=== PATIENT | female | born 1950 | race Caucasian/White ===

== ENCOUNTER 2021-07-30 14:47 | Inpatient (IN) | payer OTHER, MEDICAID ==
[~2021-07-30] VITALS: Ht 160 cm; Wt 153.8 kg
--- NOTE | 2021-07-30 14:47 | NUR ---
Placed in room 03. DR. DUMAS AT BEDSIDE FOR EVALUATION, CODE STROKE INITIATED AT THIS TIME.
--- NOTE | 2021-07-30 14:47 | NUR ---
PATIENT BROUGHT IN ALS WITH SQUAD 64 FOR SLURRED SPEECH FROM HOME. PATIENT IMMEDIATELY ACCOMPANIED BY MYSELF AND ANNE BOLTON FOR CT SCAN.
[2021-07-30 14:51] VITALS: BP_SYST 158
--- NOTE | 2021-07-30 14:51 | NUR ---
NIHSS SCORE [address] DUMAS
--- NOTE | 2021-07-30 14:51 | NUR ---
PATIENT IN CT SCAN FOR CT HEAD. PATIENT TOLERATING WELL.
--- NOTE | 2021-07-30 14:56 | NUR ---
CT SCAN COMPLETED
--- NOTE | 2021-07-30 14:56 | NUR ---
Lizzy mendez in EDM - 07/30/21 at 1554 by SDEDCJM CHEST XRAY COMPLETED EN ROUTE TO ED.
--- NOTE | 2021-07-30 15:07 | NUR ---
CHEST XRAY COMPLETED. PATIENT TOLERATED WELL
--- NOTE | 2021-07-30 15:08 | NUR ---
PATIENT RETURNED FROM CT SCAN. PLACED ON CARDIAC MONITORING, BLOOD PRESSURE, PULSE OXIMETRY. PATIENT BROUGHT IN BY ALS SQUAD 64 FROM [facility]. PER SON,WHO IS HER INSURANCE RISK SURVEYOR, PATIENT HAS GENERALIZED WEAKNESS X 3 DAYS AND NOTICED SHE HAS SLURRED SPEECH. PATIENT IS PLEASANTLY CONFUSED. BUE PEOPLESOFT DEVELOPER AND STRENGTH EQUAL. UNABLE TO MOVE RIGHT LOWER EXTREMITY AND MINIMAL MOVEMENT ON LEFT LOWER EXTREMITY. FAMILY REPORTS THAT HAS BEEN GOING ON FOR MONTHS. PATIENT HAS HISTORY OF DM, HTN AND AFIB. NIHSS SCORE OF 7.
--- NOTE | 2021-07-30 15:09 | NUR ---
PHLEB AT BEDSIDE FOR BLOOD DRAW
--- NOTE | 2021-07-30 15:16 | NUR ---
SWALLOW SCREEN FAILED. PATIENT HAS FACIAL DROOP, SLURRED SPEECH AND DROOLING.
[2021-07-30 15:27] LABS: BASOPHILS % (AUTO) 0.6 % (0.0-2.0); EOSINOPHILS # (AUTO) 0.1 K/uL (0.0-0.4); EOSINOPHILS % (AUTO) 1.3 % (0.0-4.0); HEMATOCRIT 37.9 % (36-48); HEMOGLOBIN 11.8 g/dL (12.0-16.0); LYMPHOCYTES # (AUTO) 0.7 K/uL (1.0-5.5); LYMPHOCYTES % (AUTO) 14.8 % (20.5-51.5); MEAN CORPUSCULAR HEMOGLOBIN 25 pg (27-31); MEAN CORPUSCULAR HGB CONC 31 % (32-36); MEAN CORPUSCULAR VOLUME 81 fL (79.0-98.0); MONOCYTES # (AUTO) 0.3 K/uL (0.0-1.0); MONOCYTES % (AUTO) 5.5 % (1.7-9.3); NEUTROPHILS # (AUTO) 3.8 K/uL (1.8-7.7); NEUTROPHILS % (AUTO) 77.8 % (40.0-70.0); PLATELET COUNT (AUTO) 310 K/uL (130-430); RED BLOOD CELL COUNT(AUTO) 4.69 MIL/uL (4.2-6.2); RED CELL DISTRIBUTION WIDTH 16.9 % (9.0-15.0); WHITE BLOOD COUNT (AUTO) 4.9 K/uL (4.8-10.8)
--- NOTE | 2021-07-30 15:28 | NUR ---
TELE MED NEUROLOGIST DR. YUN AT BEDSIDE EVALUATING PATIENT.
[2021-07-30 15:31] LABS: ANION GAP 4 (5-15); CALCIUM 8.4 mg/dL (8.4-11.0); CHLORIDE 93 mmol/L (98-107); CREATININE 2.26 mg/dL (0.55-1.30); GLUCOSE 176 mg/dL (70-99); SODIUM SERUM 123 mmol/L (136-145); UREA NITROGEN, BLOOD 48 mg/dL (8-21)
[2021-07-30 15:39] LABS: ALANINE AMINOTRANSFERASE 23 U/L (12-78); ALBUMIN 3.2 g/dL (3.4-4.8); ASPARTATE AMINOTRANSFERASE 35 U/L (10-37); TOTAL BILIRUBIN 0.3 mg/dL (0.0-1.0)
--- NOTE | 2021-07-30 15:47 | NUR ---
Critical lab value reporting called from lab and results were potassium 7. Dr. Tan made aware.
[2021-07-30] MEDS ORDERED: NACL 0.9% 1,000 ML IV ONE (16:00)
[2021-07-30] MEDS ORDERED: SODIUM POLYSTYRENE SULFONATE 15 GM/60 ML UDBTL PO ONE (16:00)
[2021-07-30] MEDS ORDERED: SODIUM BICARBONATE 8.4% JECT 50 MEQ/50 ML SYRINGE IVP ONE (16:00)
[2021-07-30] MEDS ORDERED: INSULIN REGULAR, HUMAN 10 UNITS/0.1 ML INJ IVP ONE (16:00)
[2021-07-30] MEDS ORDERED: CALCIUM CHLORIDE 1 GM/10 ML DISP.SYRIN (14 mEq Ca++/SYR) IVP ONE (16:00)
[2021-07-30] MEDS ORDERED: DEXTROSE 50% JECT 50 ML DISP.SYRIN IVP ONE (16:00)
[2021-07-30] MEDS ORDERED: DILTIAZEM HCL 60 MG TABLET PO ONE (16:00)
--- NOTE | 2021-07-30 16:05 | NUR ---
DR. DUMAS SPEAKING TO DR. LOPEZ FOR ADMISSION
--- NOTE | 2021-07-30 16:32 | NUR ---
CARDIZEM NOT GIVEN AT THIS TIME. MD DUMAS NOTIFIED. PATIENT IS NPO. OK NOT TO GIVE AT THIS TIME HR 60BPM
--- NOTE | 2021-07-30 16:39 | NUR ---
Admit bed requested Patient will be admitted to care of . Admitted to ICU unit. Diagnosis CVA, RENAL FAILURE, HYPERKALEMIA Inpatient (Yes or No) YES Observation (Yes or No) Orientation concerns or request close to nursing station (Yes or No) NO Covid Status PENDING From Home (Yes or if No enter name of facility) [facility] Requires Dialysis (Yes or No) NO Med Rec Completed (Yes of No) YES Addendum: 07/30/21 at 1706 by SDEDCJM COVID NEGATIVE
[2021-07-30] MEDS ORDERED: GLUCOSE (DEXTROSE) ORAL GEL -Adults PO PRN (16:45)
[2021-07-30] MEDS ORDERED: D5W 1,000 ML IV PRN (16:45)
[2021-07-30] MEDS ORDERED: DEXTROSE 50%-WATER 50 ML DISP.SYRIN IVP PRN (16:45)
[2021-07-30] MEDS ORDERED: DIPH50CA38 PO (17:12)
[2021-07-30] MEDS ORDERED: COR12.5 PO (17:12)
[2021-07-30] MEDS ORDERED: LOSA100T3 PO (17:12)
[2021-07-30] MEDS ORDERED: HYDR-3919 (17:12)
[2021-07-30] MEDS ORDERED: CLON2TAB11 PO (17:12)
[2021-07-30] MEDS ORDERED: OMEP10CA2 PO (17:12)
[2021-07-30] MEDS ORDERED: SERT100T PO (17:12)
[2021-07-30] MEDS ORDERED: FENO145T PO (17:12)
[2021-07-30] MEDS ORDERED: GABA-331 PO (17:12)
[2021-07-30] MEDS ORDERED: [UNRECOGNIZED DRUG - CODE] PO (17:12)
--- NOTE | 2021-07-30 17:13 | NUR ---
Medication reconciliation completed with information provided by PATIENT'S SON. Any prior medication reconciliation on file was reviewed and corrected.
[2021-07-30] MEDS ORDERED: SODIUM POLYSTYRENE SULFONATE 15 GM/60 ML UDBTL RC ONE (17:15)
--- NOTE | 2021-07-30 17:28 | NUR ---
PATIENT IS FULL CODE. CODE STATUS FROM PLACED IN CHART
--- NOTE | 2021-07-30 18:38 | NUR ---
Accucheck 102
--- NOTE | 2021-07-30 19:19 | NUR ---
patient moved to bed 6
--- NOTE | 2021-07-30 19:29 | NUR ---
SON, ERIC [phone] DAUGHTER, PRADEEP [phone]
[2021-07-30 19:39] LABS: ANION GAP 8 (5-15); CALCIUM 8.7 mg/dL (8.4-11.0); CHLORIDE 99 mmol/L (98-107); GLUCOSE 98 mg/dL (70-99); POTASSIUM 5.4 mmol/L (3.5-5.1); SODIUM SERUM 128 mmol/L (136-145); UREA NITROGEN, BLOOD 47 mg/dL (8-21)
--- NOTE | 2021-07-31 | NUR ---
ACCUCHECK: 91 No signs of hypoglycemia noted. Resting comfortably in bed.
[2021-07-31] MEDS ORDERED: ONDANSETRON HCL 4 MG/2 ML VIAL IVP PRN (04:15)
[2021-07-31] MEDS: MORPHINE 2 MG/ML INJ. SYRINGE IVP PRN ×3 (04:25→23:36)
--- NOTE | 2021-07-31 05:10 | NUR ---
Restoril 15 mg 1 tab PO administered. Pt unable to sleep all night and requesting sleeping aid.
[2021-07-31] MEDS ORDERED: TEMAZEPAM 15 MG CAPSULE ONE (05:27)
[2021-07-31] MEDS ORDERED: LORazepam 2 MG/ML VIAL ONE (05:40)
--- NOTE | 2021-07-31 06:50 | NUR ---
ACCUCHECK: 87 No signs of hypoglycemia. Resting comfortably in bed.
[2021-07-31] MEDS ORDERED: KCL 20 mEq in 100 mL (PREMIX) 100 ML IV ONE (07:00)
--- NOTE | 2021-07-31 07:40 | NUR ---
Report taken. VSS. LOC X 3. No neuro deficits. Continues in Afib with controlled rate. States that she is hungry. MD to be asked about food. To be admitted Awaiting bed on floor.
[2021-07-31 07:45] LABS: EOSINOPHILS # (AUTO) 0.2 K/uL (0.0-0.4); EOSINOPHILS % (AUTO) 2.9 % (0.0-4.0); HEMATOCRIT 36.9 % (36-48); HEMOGLOBIN 11.5 g/dL (12.0-16.0); LYMPHOCYTES # (AUTO) 0.6 K/uL (1.0-5.5); LYMPHOCYTES % (AUTO) 10.4 % (20.5-51.5); MEAN CORPUSCULAR HEMOGLOBIN 25 pg (27-31); MEAN CORPUSCULAR HGB CONC 31 % (32-36); MEAN CORPUSCULAR VOLUME 81 fL (79.0-98.0); MONOCYTES # (AUTO) 0.4 K/uL (0.0-1.0); MONOCYTES % (AUTO) 6.8 % (1.7-9.3); PLATELET COUNT (AUTO) 314 K/uL (130-430); RED BLOOD CELL COUNT(AUTO) 4.54 MIL/uL (4.2-6.2); RED CELL DISTRIBUTION WIDTH 16.6 % (9.0-15.0); WHITE BLOOD COUNT (AUTO) 5.9 K/uL (4.8-10.8)
--- NOTE | 2021-07-31 08:00 | NUR ---
Orders received per Dr Woodall to downgrade level of care to telemetry
--- NOTE | 2021-07-31 08:01 | NUR ---
Admit bed requested Patient will be admitted to care of Dr. Woodall. Admitted to tele unit. Diagnosis CVA Inpatient (Yes or No) Y Observation (Yes or No) N Orientation concerns or request close to nursing station (Yes or No) N Covid Status Neg On vent or bipap N Isolation requirements N Needs a sitter N From Home (Yes or if No enter name of facility) Home Requires Dialysis (Yes or No) N Med Rec Completed (Yes of No) Y
[2021-07-31 08:05] LABS: ALANINE AMINOTRANSFERASE 18 U/L (12-78); ANION GAP 9 (5-15); ASPARTATE AMINOTRANSFERASE 30 U/L (10-37); CALCIUM 8.7 mg/dL (8.4-11.0); CHLORIDE 98 mmol/L (98-107); CREATININE 2.21 mg/dL (0.55-1.30); GLUCOSE 88 mg/dL (70-99); SODIUM SERUM 130 mmol/L (136-145); TOTAL BILIRUBIN 0.5 mg/dL (0.0-1.0); UREA NITROGEN, BLOOD 44 mg/dL (8-21)
[2021-07-31] MEDS ORDERED: DILTIAZEM HCL 60 MG TABLET PO ONE (08:15)
[2021-07-31] MEDS ORDERED: MORPHINE 2 MG/ML INJ. SYRINGE ONE (08:31)
[2021-07-31 08:45] LABS: POTASSIUM 5.8 mmol/L (3.5-5.1)
--- NOTE | 2021-07-31 08:45 | NUR ---
Admitted. Orders taken for cardizem PO and Morphine which has been given. Am meal ordered Awaiting arrival. Report given to Nestor Ambulated to Placed in bed Nurse aware
--- NOTE | 2021-07-31 08:50 | NUR ---
ADMISSION NOTE Received patient from ER via yun, received report from ROBBIN GOLD. Patient admitted with diagnosis of CVA, HYPERKALEMIA AND RENAL FAILURE. Patient oriented to hospital routine, call light, toileting and safety-patient verbalized understanding All needs met at this time, will continue to monitor. .
[2021-07-31 08:57] LABS: BASOPHILS % (AUTO) 0.3 % (0.0-2.0); NEUTROPHILS % (AUTO) 79.6 % (40.0-70.0)
[2021-07-31 08:59] LABS: NEUTROPHILS # (AUTO) 4.7 K/uL (1.8-7.7)
[2021-07-31 09:00] VITALS: BP_SYST 125
[2021-07-31] MEDS ORDERED: NALOXONE HCL 0.4 MG/ML AMP (NARCAN) IVP PRN (09:00)
[2021-07-31] MEDS ORDERED: MORPHINE 2 MG/ML INJ. SYRINGE IVP ONE (09:00)
--- NOTE | 2021-07-31 09:13 | NUR ---
CONSULTATION PAGED/CALLED Reason for Consultation: [] RENAL FAILURE Person Who was Notified: [] CINDY Consulting Physician: [] DR JOSEPH Parking Enforcement Manager Specialty: [] FREIGHT REPRESENTATIVE Ordering Physician: [] DR LOPEZ
--- NOTE | 2021-07-31 09:15 | NUR ---
CONSULTATION PAGED/CALLED Reason for Consultation: [] CVA Person Who was Notified: [] LEFT A VOICE MESSAGE Consulting Physician: [] MANNY GRUBBS Supervisor Locomotive Specialty: [] NEURO Ordering Physician: [] DR LOPEZ
--- NOTE | 2021-07-31 10:29 | NUR ---
SPOKE TO MD Spoke to Dr Woodall, informed him that the patient's potassium is 5.8. New orders received.
[2021-07-31] MEDS ORDERED: SODIUM POLYSTYRENE SULFONATE 15 GM/60 ML UDBTL PO ONE (10:30)
[2021-07-31 11:28] VITALS: BP_SYST 151
--- NOTE | 2021-07-31 15:07 | NUR ---
Dietitian Recommendations * Consider ST padmaja dangelo prior to diet advancement LP, RD Please refer to Nutrition Assessment for details. Addendum: 07/31/21 at [address] Amended: Links added.
[2021-07-31] MEDS ORDERED: FENOFIBRATE NANOCRYSTALLIZED PO SCH (15:15)
[2021-07-31] MEDS ORDERED: NON-FORMULARY MEDICATION (Gabapentin 1 TAB) PO SCH (15:15)
[2021-07-31] MEDS ORDERED: NON-FORMULARY MEDICATION (Omeprazole (Prilosec) 20 MG) PO SCH (15:15)
[2021-07-31] MEDS ORDERED: ERGOCALCIFEROL PO SCH (15:15)
[2021-07-31] MEDS ORDERED: PANTOPRAZOLE SODIUM 40 MG TAB PO ONE (15:30)
[2021-07-31] MEDS ORDERED: CARVEDILOL 12.5 MG TABLET (COREG) PO ONE (15:30)
[2021-07-31] MEDS ORDERED: SERTRALINE HCL 50 MG TABLET PO ONE (15:30)
[2021-07-31] MEDS ORDERED: LOSARTAN POTASSIUM 50 MG TABLET (COZAAR) PO ONE (15:30)
[2021-07-31] MEDS ORDERED: GABAPENTIN 300 MG CAPSULE PO ONE (15:45)
[2021-07-31] MEDS ORDERED: FENOFIBRATE NANOCRYSTALLIZED 48 MG TABLET (TRICOR) PO ONE (15:45)
[2021-07-31 16:04] VITALS: BP_SYST 125
[2021-07-31] MEDS ORDERED: ASPIRIN 81 MG TAB.CHEW PO ONE (17:30)
[2021-07-31] MEDS ORDERED: CLOPIDOGREL BISULFATE 75 MG TABLET PO ONE (17:30)
[2021-07-31] MEDS: INSULIN REGULAR, HUMAN 100 UNITS/ML, 10 ML VIAL (humuLIN R) SUBCUT PRN (17:31)
[2021-07-31] MEDS ORDERED: NACL 0.9% 1,000 ML IV SCH (19:45)
--- NOTE | 2021-07-31 19:47 | NUR ---
CLOSING NOTE Patient in bed resting with daughter at bedside. Patient is oriented to self only at this time. Patient has been tolerating soft renal diet well. Patient complaining of headache, aware of when she cant receive her next pain medication. Family is updated on the plan of care and ordered tests. All needs met at this time and safety checks made. Endorsed to slot shift supervisor nurse.
[2021-07-31 20:00] VITALS: BP_SYST 124
[2021-07-31] MEDS ORDERED: SODIUM ZIRCONIUM CYCLOSILICATE 10 GM POWD.PACK PO ONE (20:00)
[2021-07-31] MEDS: TEMAZEPAM 15 MG CAPSULE PO SCH (20:09)
[2021-07-31] MEDS: ATORVASTATIN 20 MG TABLET PO SCH (20:10)
[2021-07-31] MEDS: CARVEDILOL 12.5 MG TABLET (COREG) PO SCH (20:11)
[2021-07-31] MEDS: D5NS 1,000 ML IV SCH (20:11)
[2021-07-31] MEDS: clonazePAM 0.5 MG TABLET PO PRN (21:48)
[2021-08-01 01:10] VITALS: BP_SYST 155
[2021-08-01 04:00] VITALS: BP_SYST 142
[2021-08-01] MEDS: MORPHINE 2 MG/ML INJ. SYRINGE IVP PRN ×2 (06:12→21:53)
[2021-08-01] MEDS: clonazePAM 0.5 MG TABLET PO PRN ×2 (06:25→23:56)
[2021-08-01 07:05] LABS: HEMATOCRIT 32.9 % (36-48); HEMOGLOBIN 10.3 g/dL (12.0-16.0); MEAN CORPUSCULAR HEMOGLOBIN 25 pg (27-31); MEAN CORPUSCULAR HGB CONC 31 % (32-36); MEAN CORPUSCULAR VOLUME 80 fL (79.0-98.0); PLATELET COUNT (AUTO) 239 K/uL (130-430); RED CELL DISTRIBUTION WIDTH 16.8 % (9.0-15.0)
[2021-08-01 07:34] LABS: WHITE BLOOD COUNT (AUTO) 3.4 K/uL (4.8-10.8)
[2021-08-01 07:47] LABS: ANION GAP 9 (5-15); CALCIUM 7.7 mg/dL (8.4-11.0); CHLORIDE 98 mmol/L (98-107); GLUCOSE 179 mg/dL (70-99); PHOSPHORUS 3.7 mg/dL (2.7-4.5); POTASSIUM 4.3 mmol/L (3.5-5.1); SODIUM SERUM 130 mmol/L (136-145); THYROID STIMULATING HORMONE 2.32 uIu/mL (0.36-3.74); UREA NITROGEN, BLOOD 34 mg/dL (8-21)
[2021-08-01 08:11] VITALS: BP_SYST 147
[2021-08-01 08:15] LABS: CHOLESTEROL 95 mg/dL (<200); HDL CHOLESTEROL 36 mg/dL (>55); LDL CHOLESTEROL 43 mg/dL (<100); TRIGLYCERIDES 63 mg/dL (30-150)
[2021-08-01 08:30] LABS: BAND % (MANUAL) 0 % (0-6); BASOPHILS % (MANUAL) 0 % (0-2); EOSINOPHILS % (MANUAL) 2 % (0-7); LYMPHOCYTES % (MANUAL) 14 % (20-46); MONOCYTES % (MANUAL) 7 % (0-11)
[2021-08-01] MEDS ORDERED: SERTRALINE HCL 50 MG TABLET PO SCH (09:00)
[2021-08-01] MEDS: D5NS 1,000 ML IV SCH ×2 (09:05→23:38)
[2021-08-01] MEDS: GABAPENTIN 300 MG CAPSULE PO SCH (10:18)
[2021-08-01] MEDS: ASPIRIN 81 MG TAB.CHEW PO SCH (10:19)
[2021-08-01] MEDS: FENOFIBRATE NANOCRYSTALLIZED 48 MG TABLET (TRICOR) PO SCH (10:20)
[2021-08-01] MEDS: PANTOPRAZOLE SODIUM 40 MG TAB PO SCH (10:21)
[2021-08-01] MEDS: ATORVASTATIN 20 MG TABLET PO SCH (10:22)
[2021-08-01] MEDS: LOSARTAN POTASSIUM 50 MG TABLET (COZAAR) PO SCH (10:23)
[2021-08-01] MEDS: CLOPIDOGREL BISULFATE 75 MG TABLET PO SCH (10:24)
[2021-08-01] MEDS: CARVEDILOL 12.5 MG TABLET (COREG) PO SCH ×2 (10:24→21:50)
[2021-08-01 12:02] VITALS: BP_SYST 108
[2021-08-01] MEDS: INSULIN REGULAR, HUMAN 100 UNITS/ML, 10 ML VIAL (humuLIN R) SUBCUT PRN ×3 (13:41→23:47)
[2021-08-01 15:34] VITALS: BP_SYST 110
--- NOTE | 2021-08-01 19:00 | NUR ---
Pt is resting quietly at this time. Pt's daughter visited with her most of the shift. Pt has been accepting verbal redirection well. Respirations even et unlabored. Pt requires assistance and monitoring with meals. Incontinent care rendered as needed throughout the shift.
[2021-08-01 20:00] VITALS: BP_SYST 96
[2021-08-01] MEDS: TEMAZEPAM 15 MG CAPSULE PO SCH (21:49)
[2021-08-02 00:55] VITALS: BP_SYST 107
[2021-08-02] MEDS: INSULIN REGULAR, HUMAN 100 UNITS/ML, 10 ML VIAL (humuLIN R) SUBCUT PRN ×3 (06:00→18:46)
--- NOTE | 2021-08-02 06:46 | NUR ---
CONSULTATION PAGED/CALLED Reason for Consultation: [] AFIB Person Who was Notified: [] BERT Consulting Physician: [] DR DELGADO Marketing Support Specialist Specialty: [] CARDIO Ordering Physician: [] DR LOPEZ
[2021-08-02 07:01] LABS: BASOPHILS % (AUTO) 0.8 % (0.0-2.0); EOSINOPHILS # (AUTO) 0.1 K/uL (0.0-0.4); EOSINOPHILS % (AUTO) 3.1 % (0.0-4.0); HEMATOCRIT 32.3 % (36-48); HEMOGLOBIN 10.2 g/dL (12.0-16.0); LYMPHOCYTES # (AUTO) 0.6 K/uL (1.0-5.5); LYMPHOCYTES % (AUTO) 16.9 % (20.5-51.5); MEAN CORPUSCULAR HEMOGLOBIN 25 pg (27-31); MEAN CORPUSCULAR HGB CONC 32 % (32-36); MEAN CORPUSCULAR VOLUME 80 fL (79.0-98.0); MONOCYTES # (AUTO) 0.3 K/uL (0.0-1.0); MONOCYTES % (AUTO) 10.6 % (1.7-9.3); NEUTROPHILS # (AUTO) 2.2 K/uL (1.8-7.7); NEUTROPHILS % (AUTO) 68.6 % (40.0-70.0); PLATELET COUNT (AUTO) 223 K/uL (130-430); RED BLOOD CELL COUNT(AUTO) 4.06 MIL/uL (4.2-6.2); WHITE BLOOD COUNT (AUTO) 3.3 K/uL (4.8-10.8)
[2021-08-02 07:07] LABS: CORTISOL (SERUM) 21.4 ug/dL (.)
[2021-08-02 07:28] LABS: ANION GAP 8 (5-15); CALCIUM 7.6 mg/dL (8.4-11.0); CHLORIDE 99 mmol/L (98-107); CREATININE 1.85 mg/dL (0.55-1.30); GLUCOSE 152 mg/dL (70-99); POTASSIUM 4.3 mmol/L (3.5-5.1); SODIUM SERUM 130 mmol/L (136-145); UREA NITROGEN, BLOOD 32 mg/dL (8-21)
[2021-08-02 08:00] VITALS: BP_SYST 121
[2021-08-02] MEDS: FENOFIBRATE NANOCRYSTALLIZED 48 MG TABLET (TRICOR) PO SCH (08:59)
[2021-08-02] MEDS: GABAPENTIN 300 MG CAPSULE PO SCH (08:59)
[2021-08-02] MEDS: LOSARTAN POTASSIUM 50 MG TABLET (COZAAR) PO SCH (09:00)
[2021-08-02] MEDS: PANTOPRAZOLE SODIUM 40 MG TAB PO SCH (09:00)
[2021-08-02] MEDS: ASPIRIN 81 MG TAB.CHEW PO SCH (09:00)
[2021-08-02] MEDS: CLOPIDOGREL BISULFATE 75 MG TABLET PO SCH (09:00)
[2021-08-02] MEDS: CARVEDILOL 12.5 MG TABLET (COREG) PO SCH ×2 (09:01→21:08)
[2021-08-02 09:52] LABS: HEMOGLOBIN A1C 8.9 % (4.8-5.6)
[2021-08-02 11:32] VITALS: BP_SYST 142
[2021-08-02] MEDS: D5NS 1,000 ML IV SCH (15:00)
--- NOTE | 2021-08-02 15:23 | NUR ---
Nutritional F/U Admitting Diagnosis CVA, hyperkalemia, renal failure Reviewed Pertinent Medical/Surgical Hx Medical Record Medical History Comment: PMH: DM, HTN, HLD, and atr fibr per physician notes Pt also found w/ generalized weakness, L-sided facial droop, and slurred speech upon admission from home per physician notes SARS-CoV-2 Ag (Rapid) Negative 07/[address] bedside visit deferred d/t high workload. Per physician notes, pt also found to have JACY. Per EMR review, Paul scale 14 L. ankle wound; B. generalized 2+ non-pitting edema; Las BM x1 08/01; average PO intake 34% x 6 meal records. Pt is not currently meeting nutritional needs. Current Diet Order/Nutrition Support Soft/Coleman x 1 day Patient/Significant Other Unable To Verbalize Education Provided Not Indicated Pertinent Medications Plavix, Protonix, Cozaar, Coreg, Vit D, SSI Pertinent Labs Na 130 L, BUN 32 H, CRE 1.85 H, BG 152 H, POC BG 195 H Height (Feet) 5 feet Height (Inches) 3.00 inches Weight (Pounds) 339 pounds stable since 07/31 Weight (Calculated Kilograms) 153.080847 kilograms Patient Weight 153.768 kg Body Mass Index 60.04 kg/m2 %IBW 295 [place]/Adjusted Body Weight 115#/52.3 kg. 171#/77.7 kg Recent Weight Change Unable to verify Weight Status Morbidly Obese Food Allergies Unable to verify Usual Diet At Home Regular per nursing nutritional screening Skin Integrity Comment: Unhealed wound noted per nursing nutritional screening Estimated Energy Expenditure (kcals/day) 2960-9856 (30-35 kcal/kg Adj IBW d/t morbid obesity, CVA, wound) Estimated Protein Required (g/day) 78-101 (1-1.3 gm/kg Adj IBW d/t renal failure, morbid obesity, CVA, wound) Estimated Fluid Required (l/day) Per physician d/t renal failure Problem/Etiology/Signs/Symptoms Suspected chewing/swallowing difficulties R/T pathophysiological factors AEB generalized weakness/L-sided facial droop, and slurred speech upon admission a/w CVA. (*ongoing) Expected Outcomes/Goals - Monitor ST swallow eval recs, diet advancement, appetite, and PO intakes w/ goal of pt meeting >50% of estimated nutritional needs, labs trending WNL, normal GI function, and skin integrity/wt maintenance Dietitian Recommendations * Consider ST swallow eval for pts safety Follow Up High Risk: F/U in 2-3days Please refer to Nutrition F/U for details.
--- NOTE | 2021-08-02 15:23 | NUR ---
Dietitian Recommendations * Consider ST swallow eval for pts safety Please refer to Nutrition F/U for details.
[2021-08-02 16:00] VITALS: BP_SYST 149
--- NOTE | 2021-08-02 18:00 | NUR ---
Patient's sons visited at bedside most of the shift. Neurologist came to speak to family and reassess pt at this time. Pt is calm with family prsent at bedside. Pt's neuro status changes intermittently. Speech from clear to unclear and movement on left side of body is weaker at intervals, as well as the left facial drooping. Neurologist is aware of this. Neurologist stated that he plans to proceed with MRI if possible. Family at bedside and is updated on the plan of care. Pt remains on room air. No s/s respiratory distress noted.
[2021-08-02 19:36] VITALS: BP_SYST 133
[2021-08-02] MEDS: TEMAZEPAM 15 MG CAPSULE PO SCH (21:09)
[2021-08-03] MEDS: D5NS 1,000 ML IV SCH ×2 (00:09→14:25)
[2021-08-03 00:20] VITALS: BP_SYST 128
[2021-08-03] MEDS: INSULIN REGULAR, HUMAN 100 UNITS/ML, 10 ML VIAL (humuLIN R) SUBCUT PRN ×5 (05:53→23:10)
--- NOTE | 2021-08-03 07:56 | NUR ---
OPENING NOTE Patient resting in bed, awake and alert, oriented only to self. Patient is confused and agitated at this time. Patient able to feed herself breakfast with assist. No sign of distress and patient denies pain. All needs met at this time and safety checks made. Will continue to monitor.
[2021-08-03 08:00] VITALS: BP_SYST 140
[2021-08-03 08:38] LABS: ANION GAP 9 (5-15); CALCIUM 7.7 mg/dL (8.4-11.0); CHLORIDE 99 mmol/L (98-107); CREATININE 1.81 mg/dL (0.55-1.30); GLUCOSE 149 mg/dL (70-99); POTASSIUM 4.2 mmol/L (3.5-5.1); SODIUM SERUM 130 mmol/L (136-145); UREA NITROGEN, BLOOD 27 mg/dL (8-21)
[2021-08-03] MEDS: CARVEDILOL 12.5 MG TABLET (COREG) PO SCH ×2 (09:32→21:00)
[2021-08-03] MEDS: PANTOPRAZOLE SODIUM 40 MG TAB PO SCH (09:32)
[2021-08-03] MEDS: GABAPENTIN 300 MG CAPSULE PO SCH (09:32)
[2021-08-03] MEDS: clonazePAM 0.5 MG TABLET PO PRN (09:32)
[2021-08-03] MEDS: FENOFIBRATE NANOCRYSTALLIZED 48 MG TABLET (TRICOR) PO SCH (09:33)
[2021-08-03] MEDS: LOSARTAN POTASSIUM 50 MG TABLET (COZAAR) PO SCH (09:33)
[2021-08-03] MEDS: CLOPIDOGREL BISULFATE 75 MG TABLET PO SCH (09:33)
[2021-08-03] MEDS: ASPIRIN 81 MG TAB.CHEW PO SCH (09:33)
--- NOTE | 2021-08-03 09:46 | NUR ---
PRN MEDICATIONS Patient complaining of pain (9/10) in her back and head as well as anxiety. PRN medications given. Will continue to monitor.
[2021-08-03] MEDS: MORPHINE 2 MG/ML INJ. SYRINGE IVP PRN (09:49)
[2021-08-03 12:00] VITALS: BP_SYST 150
--- NOTE | 2021-08-03 15:00 | NUR ---
ROUNDS Patient in bed resting with eyes closed. Patient supported with pillows and positioned for fluid return. No sign of distress or pain at this time. IV is patent and running prescribed fluids. All needs met at this time and safety checks made. Will continue to monitor.
[2021-08-03 16:00] VITALS: BP_SYST 140
--- NOTE | 2021-08-03 19:17 | NUR ---
CLOSING NOTE Patient in bed resting with son at bedside. No sign of distress, patient denies pain at this time. Patient has been sleeping for most of the shift. Positioned for fluid return and supported by pillows. IV is clean, dry, intact and patent. Patient's family updated on the plan of care. All needs met at this time and safety checks made. Endorsed to shift leader nurse.
[2021-08-03 20:55] VITALS: BP_SYST 124
[2021-08-03] MEDS: TEMAZEPAM 15 MG CAPSULE PO SCH (20:59)
[2021-08-04 00:07] VITALS: BP_SYST 133
--- NOTE | 2021-08-04 02:34 | NUR ---
transfer of care Received SBAR report from ASIF Wilson. He reported IV is not patent, catheter to LFA is saline locked. Patient is resting in bed, eyes open, no distress, on room air, nonlabored breathing. Her words are garbled. Patient is A-fib on tele monitor HR 104. Bed is locked in lowest position, side rails up, and bed alarm on.
[2021-08-04] MEDS: D5NS 1,000 ML IV SCH (03:45)
--- NOTE | 2021-08-04 06:30 | NUR ---
Accucheck, IV attempt Patient was provided with bed bath and new linens. Accucheck result: 115 mg/dL. IV start attempted once by myself and twice by ICU nurse and unsuccessful.
[2021-08-04 06:49] LABS: BASOPHILS % (AUTO) 0.9 % (0.0-2.0); EOSINOPHILS # (AUTO) 0.2 K/uL (0.0-0.4); EOSINOPHILS % (AUTO) 6.1 % (0.0-4.0); HEMATOCRIT 35.5 % (36-48); HEMOGLOBIN 11.2 g/dL (12.0-16.0); LYMPHOCYTES # (AUTO) 0.6 K/uL (1.0-5.5); LYMPHOCYTES % (AUTO) 15.2 % (20.5-51.5); MEAN CORPUSCULAR HEMOGLOBIN 25 pg (27-31); MEAN CORPUSCULAR HGB CONC 32 % (32-36); MEAN CORPUSCULAR VOLUME 80 fL (79.0-98.0); MONOCYTES # (AUTO) 0.3 K/uL (0.0-1.0); MONOCYTES % (AUTO) 8.4 % (1.7-9.3); NEUTROPHILS # (AUTO) 2.7 K/uL (1.8-7.7); NEUTROPHILS % (AUTO) 69.4 % (40.0-70.0); PLATELET COUNT (AUTO) 234 K/uL (130-430); RED BLOOD CELL COUNT(AUTO) 4.44 MIL/uL (4.2-6.2); WHITE BLOOD COUNT (AUTO) 3.9 K/uL (4.8-10.8)
--- NOTE | 2021-08-04 07:05 | NUR ---
Dr. Woodall called and informed unable to secure IV site (ICU nurse tried and myself); received order for midline placement. Also informed does not have PO pain med and received order for Fannin 5-325 Q6P moderate pain; TORB
[2021-08-04 07:36] LABS: ANION GAP 10 (5-15); CALCIUM 7.9 mg/dL (8.4-11.0); CHLORIDE 99 mmol/L (98-107); CREATININE 1.67 mg/dL (0.55-1.30); GLUCOSE 124 mg/dL (70-99); POTASSIUM 4.3 mmol/L (3.5-5.1); SODIUM SERUM 130 mmol/L (136-145); UREA NITROGEN, BLOOD 28 mg/dL (8-21)
--- NOTE | 2021-08-04 07:47 | NUR ---
CRITICAL RESULT Critical CT exam result received at 0733. Spoke to Dr Woodall and notified him of the result at 0745. Paged Dr Gaines, awaiting call back. Addendum: 08/04/21 at 0752 by Adali Aldrich LVN SPOKE TO DR GAINES Spoke to Dr Gaines at 0750, notified him of the critical result. stated he would speak with the family later today.
[2021-08-04 08:00] VITALS: BP_SYST 159
--- NOTE | 2021-08-04 08:00 | NUR ---
OPENING NOTE Patient in bed resting with son at bedside. Patient complains of gas in her stomach, assisted patient in repositioning. No sign of distress. Patient is oriented to self and location. No IV site at this time, awaiting PICC placement. Patient and family updated on the plan of care for today. All needs met at this time and safety checks made. Will continue to monitor.
[2021-08-04] MEDS: LOSARTAN POTASSIUM 50 MG TABLET (COZAAR) PO SCH (09:46)
[2021-08-04] MEDS: FENOFIBRATE NANOCRYSTALLIZED 48 MG TABLET (TRICOR) PO SCH (09:46)
[2021-08-04] MEDS: GABAPENTIN 300 MG CAPSULE PO SCH (09:46)
[2021-08-04] MEDS: CLOPIDOGREL BISULFATE 75 MG TABLET PO SCH (09:47)
[2021-08-04] MEDS: CARVEDILOL 12.5 MG TABLET (COREG) PO SCH ×2 (09:47→20:45)
[2021-08-04] MEDS: ASPIRIN 81 MG TAB.CHEW PO SCH (09:47)
[2021-08-04] MEDS: PANTOPRAZOLE SODIUM 40 MG TAB PO SCH (09:47)
[2021-08-04 11:30] VITALS: BP_SYST 122
[2021-08-04] MEDS: INSULIN REGULAR, HUMAN 100 UNITS/ML, 10 ML VIAL (humuLIN R) SUBCUT PRN ×2 (12:08→19:35)
[2021-08-04] MEDS ORDERED: FUROSEMIDE 40 MG TABLET PO ONE (13:00)
--- NOTE | 2021-08-04 13:25 | NUR ---
JULIO MILES Spoke to Dr Heart and informed him that patient has generalized edema and her BNP is 1660. ordered one time dose of lasix to be given PO. Will continue to monitor patient.
[2021-08-04 15:28] VITALS: BP_SYST 120
--- NOTE | 2021-08-04 15:41 | NUR ---
WOUND EVAL Patient seen by Rikki, wound care nurse, for the wound on her left ankle. New orders received and family educated.
--- NOTE | 2021-08-04 15:41 | NUR ---
WOUND EVALUATION: Late note for 08/04/2021 at 1541 secondary to patient care. Wound Consult received from Dr. Woodall. Thank you, Dr. Woodall, for the consult. Patient received in a [place] Bed with a mattress, awake, alert, confused. Patient is unable to turn independently. Paul Score is a 14. Past Medical History: Stroke, Diabetes Mellitus, Hypertension, new onset Atrial Fibrillation, non-ambulatory since 2015 after having sepsis, history of stroke but unable to elaborate where the stroke was and if she had any residual neurological deficits, and many surgeries per patient report. Patient was brought in by ambulance for evaluation of stroke. Recent Labs: WBC 4.8, RBC 4.24, hemoglobin 10.7, hematocrit 33.3, sodium 131, BUN 27, creatinine 1.67, glucose 133, POC glucose 143, calcium 7.7, AST 16, ALT 9, alkaline phosphatase 33, serum total protein 5.9, BNP 1340, albumin 2.1. Microbiology: MRSA screen results negative. Urine culture results in progress. Intrinsic factors that delay wound healing: Diabetes Mellitus, Hyperglycemia, Hypoalbuminemia. Extrinsic factors that delay wound healing: Decreased mobility. Wound Assessment: 1. Left Lateral Malleolus: Unstageable pressure ulcer, present on admission. Wound bed has 70% yellow slough, 30% pink tissue. Foul odor, scant yellow drainage. Jean-wound intact, white. Measures 2.4 cm x 1.5 cm. Recommend: Cleanse wound with normal saline. Apply moisture barrier cream to jean-wound. Apply Venelex ointment to wound bed. Cover with foam dressing. Perform wound care daily, and as needed for dressing soiling or dislodgement. Offload site at all times with towel rolls above and below malleolus. 2. Abdominal fold: Intertrigo with erythema, present on admission. Recommend: Cleanse involved areas with mild soap and water. Pat dry. Apply antifungal powder to involved areas. Place Inter-dry AG cloth in between abdominal fold areas. Perform site care twice daily. Change Inter-dry Ag cough every 5 days, and as needed for soiling. 3. Buttocks: Blanchable redness from IAD, present on admission. Recommend: Cleanse involved area with mild soap and water. Pat dry. Apply moisture barrier cream to involved area. Perform site care 4 times daily, and as needed for soiling. Also recommend: Reposition patient every 2 hours with pillow support and off-load pressure areas with pillows for pressure re-distribution. Offload, elevate and float bilateral heels with pillows. Perform skin care and monitor skin integrity Q shift. Use moisture barrier cream on buttocks and other moisture susceptible areas QID and as needed for soiling. Place patient on a low air-loss mattress.
[2021-08-04 16:56] LABS: BILIRUBIN,URINE NEGATIVE (NEGATIVE); CLARITY/URINE SL CLOUDY (CLEAR); COLOR,URINE YELLOW (YELLOW); GLUCOSE,URINE NEGATIVE (NEGATIVE); KETONES,URINE NEGATIVE (NEGATIVE); LEUKOCYTE ESTERASE ,URINE 2+ (NEGATIVE); NITRITE, URINE POSITIVE (NEGATIVE); PROTEIN URINE TRACE (NEGATIVE); UROBILINOGEN,URINE 0.2 (0.2-1.0)
[2021-08-04 17:04] LABS: BLOOD, URINE TRACE (NEGATIVE)
[2021-08-04 17:09] LABS: BACTERIA,URINE MANY /HPF (None Seen); RBC,URINE 0-3 /HPF (0-3); WBC,URINE 20-50 /HPF (0-3)
[2021-08-04 17:12] LABS: MUCUS,URINE None Seen /LPF (None Seen)
--- NOTE | 2021-08-04 19:43 | NUR ---
CLOSING NOTE Patient in bed resting with eyes closed. No sign of distress or pain. PICC line is clean, dry, intact and patent. Patient continue to have generalized edema. Patient supported by pillows, feet elevated. All needs met at this time and safety checks made. Endorsed to night auditor nurse and answered all questions.
[2021-08-04 20:28] LABS: URINE SODIUM, RANDOM 46 mmol/L (40-220)
[2021-08-04] MEDS: HYDROcodone/ACETAMIN 5-325 MG TAB (NORCO/ VICODIN) PO PRN (20:42)
[2021-08-04] MEDS: TEMAZEPAM 15 MG CAPSULE PO SCH (20:42)
[2021-08-04 20:45] VITALS: BP_SYST 116
[2021-08-05 01:38] VITALS: BP_SYST 102
[2021-08-05] MEDS: INSULIN REGULAR, HUMAN 100 UNITS/ML, 10 ML VIAL (humuLIN R) SUBCUT PRN ×2 (01:44→12:02)
[2021-08-05 05:43] VITALS: BP_SYST 108
[2021-08-05] MEDS: MORPHINE 2 MG/ML INJ. SYRINGE IVP PRN (05:55)
[2021-08-05 06:45] LABS: BASOPHILS % (AUTO) 0.5 % (0.0-2.0); EOSINOPHILS # (AUTO) 0.3 K/uL (0.0-0.4); EOSINOPHILS % (AUTO) 5.5 % (0.0-4.0); HEMATOCRIT 33.3 % (36-48); HEMOGLOBIN 10.7 g/dL (12.0-16.0); LYMPHOCYTES # (AUTO) 0.9 K/uL (1.0-5.5); LYMPHOCYTES % (AUTO) 17.8 % (20.5-51.5); MEAN CORPUSCULAR HEMOGLOBIN 25 pg (27-31); MEAN CORPUSCULAR HGB CONC 32 % (32-36); MEAN CORPUSCULAR VOLUME 79 fL (79.0-98.0); MONOCYTES # (AUTO) 0.3 K/uL (0.0-1.0); MONOCYTES % (AUTO) 6.4 % (1.7-9.3); NEUTROPHILS # (AUTO) 3.4 K/uL (1.8-7.7); NEUTROPHILS % (AUTO) 69.8 % (40.0-70.0); PLATELET COUNT (AUTO) 210 K/uL (130-430); RED BLOOD CELL COUNT(AUTO) 4.24 MIL/uL (4.2-6.2); RED CELL DISTRIBUTION WIDTH 16.9 % (9.0-15.0); WHITE BLOOD COUNT (AUTO) 4.8 K/uL (4.8-10.8)
[2021-08-05 07:11] LABS: ALANINE AMINOTRANSFERASE 9 U/L (12-78); ALBUMIN 2.1 g/dL (3.4-4.8); ANION GAP 8 (5-15); ASPARTATE AMINOTRANSFERASE 16 U/L (10-37); CALCIUM 7.7 mg/dL (8.4-11.0); CHLORIDE 99 mmol/L (98-107); CREATININE 1.67 mg/dL (0.55-1.30); GLUCOSE 133 mg/dL (70-99); POTASSIUM 4.2 mmol/L (3.5-5.1); SODIUM SERUM 131 mmol/L (136-145); TOTAL BILIRUBIN 0.2 mg/dL (0.0-1.0); UREA NITROGEN, BLOOD 27 mg/dL (8-21)
[2021-08-05 08:00] VITALS: BP_SYST 117
[2021-08-05] MEDS: FENOFIBRATE NANOCRYSTALLIZED 48 MG TABLET (TRICOR) PO SCH (08:16)
[2021-08-05] MEDS: GABAPENTIN 300 MG CAPSULE PO SCH (08:16)
[2021-08-05] MEDS: ASPIRIN 81 MG TAB.CHEW PO SCH (08:16)
[2021-08-05] MEDS: LOSARTAN POTASSIUM 50 MG TABLET (COZAAR) PO SCH (08:17)
[2021-08-05] MEDS: CLOPIDOGREL BISULFATE 75 MG TABLET PO SCH (08:17)
[2021-08-05] MEDS: CARVEDILOL 12.5 MG TABLET (COREG) PO SCH ×2 (08:18→20:54)
[2021-08-05] MEDS: PANTOPRAZOLE SODIUM 40 MG TAB PO SCH (08:18)
[2021-08-05 11:28] VITALS: BP_SYST 109
[2021-08-05] MEDS ORDERED: CLOP75TA32 PO (12:19)
--- NOTE | 2021-08-05 16:00 | NUR ---
Discharge Planning: DCP arrange transport with [facility] [phone] BLS Bariatric Will Call to [facility]#[phone] Rm 105A. DCP made CM aware, pending dc order.
--- NOTE | 2021-08-05 17:29 | NUR ---
ACTIVATED THE WILL CALL STATUS OF [facility] TO TRANSPORT TO [facility] RM 105A. BUT [facility] IS ASKING FOR AUTHORIZATION TO BE PAID DOUBLE FOR 2 CREWS THAT WILL WORK ON THE TRANSFER. PT WEIGHS 339 LBS AND WILL NEED DOUBLE STAFF. SPOKE TO YONI. REFERRED THIS MATTER TO CHARGE NURSE LOUIS WHO SAID TO AGAIN PUT TRANSFER ON WILL CALL STATUS.
[2021-08-05] MEDS: HYDROcodone/ACETAMIN 5-325 MG TAB (NORCO/ VICODIN) PO PRN (17:37)
--- NOTE | 2021-08-05 19:10 | NUR ---
0800: PATIENT IS ASLEEP AROUSABLE WITH VERBAL STIMULI, ORIENTED X 3 TO NAME, PERSON, AND PLACE. SPEECH WITH SOME SLURRING. ABLE TO VERBALIZE NEEDS NO C/O ANY PAIN OR DISCOMFORT NOTED @ THIS TIME. ABDOMEN SOFT AND NON-DISTENDED, POSITIVE BOWEL SOUND X 4 NO N/V OR DIARRHEA NOTED. SKIN WARM AND DRY INTACT NO REDNESS OR EDEMA NOTED. LEFT SIDED FACIAL DROOP AND SOME LEFT SIDED MARKED WEAKNESS NOTED. WILL CONTINUE TO REASSESS PRN. 1900: VS STABLE, AFEBRILE, MEDICATION FOR PAIN X 1 WITH VICODIN FOR GENERALIZE BODY PAIN EFFECTIVE W/IN THE HOUR POST ADMINISTRATION. PLAN FOR DC'D TO SNF TOMORROW FOR REHAB TO BE ARRANGE BY CASE-SOIL CHECKER.
--- NOTE | 2021-08-05 19:46 | NUR ---
1910: ENDORSED PATIENT TO PM SHIFT NURSE. PATIENT IS NOW AGAIN C/O GENERALIZE BODY PAIN AND N/V.. NPO POST MIDNIGHT FOR POSSIBLE ANDREA OF ABDOMEN IN AM.
[2021-08-05 20:00] VITALS: BP_SYST 88
[2021-08-05] MEDS ORDERED: PHENAZOPYRIDINE HCL 100 MG TABLET PO ONE (20:30)
[2021-08-05] MEDS: TEMAZEPAM 15 MG CAPSULE PO SCH (20:54)
[2021-08-05] MEDS: PHENAZOPYRIDINE HCL 100 MG TABLET PO SCH (21:00)
[2021-08-06 00:30] VITALS: BP_SYST 119
[2021-08-06] MEDS: clonazePAM 0.5 MG TABLET PO PRN (00:37)
[2021-08-06] MEDS: CARVEDILOL 12.5 MG TABLET (COREG) PO SCH ×2 (02:56→08:12)
[2021-08-06] MEDS: MORPHINE 2 MG/ML INJ. SYRINGE IVP PRN (02:57)
[2021-08-06 04:00] VITALS: BP_SYST 118
--- NOTE | 2021-08-06 07:30 | NUR ---
Opening Received report from endorsing RN. Pt awake, confused, no signs of distress noted on room air. IV site intact, patent, no infiltration noted with IVF infusing. Moran noted with light orange urine draining to gravity.
[2021-08-06 08:00] VITALS: BP_SYST 149
[2021-08-06] MEDS: CLOPIDOGREL BISULFATE 75 MG TABLET PO SCH (08:11)
[2021-08-06] MEDS: FENOFIBRATE NANOCRYSTALLIZED 48 MG TABLET (TRICOR) PO SCH (08:11)
[2021-08-06] MEDS: GABAPENTIN 300 MG CAPSULE PO SCH (08:11)
[2021-08-06] MEDS: LOSARTAN POTASSIUM 50 MG TABLET (COZAAR) PO SCH (08:12)
[2021-08-06] MEDS: PANTOPRAZOLE SODIUM 40 MG TAB PO SCH (08:13)
[2021-08-06] MEDS: ASPIRIN 81 MG TAB.CHEW PO SCH (08:13)
[2021-08-06] MEDS: D5NS 1,000 ML IV SCH (08:13)
[2021-08-06] MEDS: HYDROcodone/ACETAMIN 5-325 MG TAB (NORCO/ VICODIN) PO PRN (08:15)
--- NOTE | 2021-08-06 11:35 | NUR ---
CM: Ambulance: booked with [facility] ([facility] with [facility]) # [phone] for BLS/bariatric gurney transport. Stated the accepting ambulance co. will call nursing station to give the ETA. ASIF Mejia made aware ; to notify me if no one call within 45 minutes, CM will f/u at # [phone]. Addendum: 08/06/21 at 1232 by Jeremiah Mckenna RN F/U with [facility] with reservation # [id number], tel # [phone], said there is no assigned ambulance co yet. It may take upto 3 hours to get the assigned ambulance co.
--- NOTE | 2021-08-06 11:36 | NUR ---
Updates given to John Aj [phone]. Informed about possible discharge today if appropriate resources are available. John states understanding and states "okay for Dimitris Jean Marie to give consent/signature for discharge."
[2021-08-06 11:55] VITALS: BP_SYST 111
[2021-08-06] MEDS: INSULIN REGULAR, HUMAN 100 UNITS/ML, 10 ML VIAL (humuLIN R) SUBCUT PRN (12:14)
[2021-08-06] MEDS: PHENAZOPYRIDINE HCL 100 MG TABLET PO SCH (12:30)
--- NOTE | 2021-08-06 13:17 | NUR ---
Transfer report given to Marilu GOLD at [facility] [phone]. Patient will go to room [address] Woodall.
[2021-08-06 13:22] VITALS: BP_SYST 111
--- NOTE | 2021-08-06 15:00 | NUR ---
Discharge patient to [facility] via gurney.PT TRANSFERRED Report given to Marilu GOLD from [facility]. Transfer packet with Transfer Orders and Medication Reconciliation form given to EMT with report. Exitcare provided. [facility] ID band removed, replaced with ID band with pt's name and . Midline and gupta catheter present upon discharge. Patient's son, Dimitris Aj, present during discharge. Informed about patient's belongings. Patient left floor via gurney escorted by EMT in no distress. Patient's son, Dimitris Aj, present.
== END 2021-08-06 15:00 | DRG 64 ==
LOC: SED 14:47 → SIC 16:33 → STU 07-31 08:09
PROVIDERS: ADMIT Internal Medicine; ATTEND Internal Medicine
DX: I63.9 Cerebral infarction, unspecified (principal); N17.0 Acute kidney failure with tubular necrosis; G81.94 Hemiplegia, unspecified affecting left nondominant side; Z68.44 Body mass index [BMI] 60.0-69.9, adult; I42.0 Dilated cardiomyopathy; E22.2 Syndrome of inappropriate secretion of antidiuretic hormone; I13.0 Hypertensive heart and chronic kidney disease with heart failure and stage 1 through stage 4 chronic kidney disease, or unspecified chronic kidney disease; N18.4 Chronic kidney disease, stage 4 (severe); E66.01 Morbid (severe) obesity due to excess calories; E78.5 Hyperlipidemia, unspecified; I48.91 Unspecified atrial fibrillation; Z20.822 Contact with and (suspected) exposure to COVID-19; E11.42 Type 2 diabetes mellitus with diabetic polyneuropathy; E86.0 Dehydration; E87.5 Hyperkalemia; R29.708 NIHSS score 8; R29.810 Facial weakness; I50.9 Heart failure, unspecified; E11.22 Type 2 diabetes mellitus with diabetic chronic kidney disease; Z74.01 Bed confinement status; Z79.4 Long term (current) use of insulin; Z86.16 Personal history of COVID-19; Z87.01 Personal history of pneumonia (recurrent)
CPT/HCPCS: 36415; 70450-TC; 71045; 76376; 76770; 80048; 80053; 80061; 81000; 82043; 82533; 82570; 82962; 83036; 83735; 83880; 83930; 83935; 84100; 84302; 84443; 84484; 84550; 85007; 85025; 85027; 87081; 87086; 93005; 93306; 93880; 96361; 96374; 96375; 97110-GP; 99285; G0378; J1815; J2060; J2270; J2405